=== PATIENT | female | born 1960 | race Caucasian/White ===

== ENCOUNTER 2024-04-24 10:36 | Outpatient (CLI) | payer MEDICARE, MEDICAID | END 2024-04-24 23:59 | disposition home or self-care (01) | LOC: RAD 10:36 | PROVIDERS: ATTEND Nurse Practitioner Psychiatric/Mental Health | DX: F25.9 Schizoaffective disorder, unspecified (principal); Z79.899 Other long term (current) drug therapy | CPT/HCPCS: 93005 ==